=== PATIENT | female | born 1975 | race African-American/Black ===

== ENCOUNTER 2024-09-27 14:22 | Emergency (ER) | payer OTHER ==
[~2024-09-27] VITALS: Ht 165.1 cm; Wt 73.2 kg
[~2024-09-27 14:22] MED LIST: ALBU17AE27 IH; AMLO-258 PO; CITA-144 PO; COMBIH IH; CYCL-448 PO; DOCU-412 PO; DULO60CA98 PO; GABA-1216 PO; LORA10TA7 PO; METO25XL PO; NORE-95 PO; PREM125 PO; TIOT185 IH; ZOLP-162 PO
[2024-09-27 14:33] VITALS: BP 126/104; PULSE 71; RESP 16; TEMP 97.7; O2SAT 98
[2024-09-27] MEDS ORDERED: MIRT-92 PO (16:24)
[2024-09-27] MEDS ORDERED: PRAZ1 PO (16:24)
[2024-09-27] MEDS ORDERED: FLUT16H NASAL (16:24)
[2024-09-27] MEDS ORDERED: METO25 PO (16:24)
[2024-09-27] MEDS ORDERED: SENN-374 PO (16:24)
[2024-09-27] MEDS ORDERED: BUSP10TA23 PO (16:24)
[2024-09-27] MEDS ORDERED: ESTR42.510 VG (16:24)
[2024-09-27] MEDS ORDERED: FLUO-341 PO (16:24)
[2024-09-27] MEDS ORDERED: BENA-8 PO (16:24)
[2024-09-27] MEDS ORDERED: AMLO10TA55 PO (16:24)
[2024-09-27] MEDS ORDERED: ALEN70TA80 PO (16:24)
[2024-09-27] MEDS ORDERED: POLY510P31 PO (16:24)
[2024-09-27] MEDS: ACETAMINOPHEN/CODEINE 300-30 MG TABLET PO ONE (16:31)
[2024-09-27] MEDS ORDERED: ACET-2080 PO (17:42)
== END 2024-09-27 17:57 | disposition home or self-care (01) ==
LOC: EMS 14:43
DX: S90.31XA Contusion of right foot, initial encounter (principal); I10 Essential (primary) hypertension; J45.909 Unspecified asthma, uncomplicated; G80.9 Cerebral palsy, unspecified; M79.7 Fibromyalgia; Z79.3 Long term (current) use of hormonal contraceptives; Z90.49 Acquired absence of other specified parts of digestive tract; Z79.899 Other long term (current) drug therapy; W05.0XXA Fall from non-moving wheelchair, initial encounter; Y93.89 Activity, other specified; Y92.009 Unspecified place in unspecified non-institutional (private) residence as the place of occurrence of the external cause; Y99.8 Other external cause status
CPT/HCPCS: 99284; 73610-TC; 73630-TC; Z7502; Z7610